=== PATIENT | female | born 1995 | race African-American/Black ===

== ENCOUNTER 2018-01-18 14:24 | Emergency (ER) | payer MEDICAID, OTHER ==
[2018-01-18 14:30] VITALS: BP 115/62; BMI 20.3
[2018-01-18 15:46] LABS: BILIRUBIN,URINE NEGATIVE (NEGATIVE); BLOOD/HEMOGLOBIN,URINE 1+ (NEGATIVE); GLUCOSE, URINE NEGATIVE (NEGATIVE); KETONES,URINE NEGATIVE (NEGATIVE); LEUKOCYTE ESTERASE ,URINE 2+ (NEGATIVE); NITRITES,URINE NEGATIVE (NEGATIVE); PROTEIN,URINE NEGATIVE (NEGATIVE); UROBILINOGEN,URINE NORMAL (NORMAL)
[2018-01-18 15:52] LABS: APPEARANCE,URINE CLOUDY (CLEAR); COLOR,URINE YELLOW (YELLOW)
[2018-01-18 15:54] LABS: BACTERIA,URINE 1+ /HPF (NEGATIVE); RBC,URINE 0-2 /HPF (NONE SEEN); SQUAMOUS EPITHELIAL CELL,UR FEW /HPF (NEGATIVE)
--- NOTE | 2018-01-18 16:23 | DR.POSSPRE ---
HPI - Time Seen Time seen: 15:00 - Primary Care Physician Primary Care Physician: NFD - Complaints Chief Complaint Doctors Comments: History as stated. patient is a SBF Chief Complaint:: PT STATED SHE THINKS SHE IS TWO MONTHS AND HAVING LOWER ABD PAIN AND SHE HAS BEEN SPOTTING ON AND OFF FOR 2 WEEKS. SGE STATED HER LAST MENSTRUAL WAS IN [facility] - Source History Provided: Patient - Mode of Arrival Mode of Arrival: Ambulatory - Timing Onset of Chief Complaint: 12/29/17 PMH - PMH Past Medical History: No Past Surgical History: No - Family History History of Family Medical Conditions: Yes Family Medical History: Diabetes Mellitus, Coronary Artery Disease, Hypertension - Social History Does patient currently use any type of tobacco product: No Have you used tobacco products in the last 12 months: No Type of Tobacco Use: None Does any household member use tobacco: No Alcohol Use: None Do you use any recreational Drugs:: No Lives With: Alone Lives Where: Home - infectious screening In the last 2 months have you had wt loss of >10#?: NO Have you had fever, night sweats or hemotysis?: No Have you traveled outside the country in the last 6 months?: No Isolation: Standard ROS - Review of Systems Eyes: No Symptoms Reported ENTM: No Symptoms Reported Respiratoy: No Symptoms Reported Cardiovascular: No Symptoms Reported Gastrointestinal/Abdominal: No Symptoms Reported Genitourinary: No Symptoms Reported Neurological: No Symptoms Reported Musculoskeletal: No Symptoms Reported Integumentary: No Symptoms Reported Hematologic/Lymphatic: No Symptoms Reported Endocrine: No Symptoms Reported Psychiatric: No Symptoms Reported All Other Systems: Reviewed and Negative PE - Vital Signs Vitals: Temperature 98.7 F Pulse Rate 100 Respiratory Rate 16 Blood Pressure [Left Arm] 158/92 Blood Pressure 115/62 O2 Sat by Pulse Oximetry 100 - General Limitations: No Limitations General Appearance: Alert, In No Apparent Distress - Head Head Exam: Normal Inspection, Atraumatic - Eyes Eye exam: Normal Appearance, PERRL, EOMI - ENT ENT Exam: Normal Exam - Neck Neck Exam: Normal Inspection, Full ROM - Chest Chest Inspection: Normal Inspection, Symmetric Chest Wall Rise - Respiratory Respiratory Exam: Normal Lung Sounds Bilat Respiratory Exam: Bilateral Clear to Auscultation - Cardiovascular Cardiovascular Exam: Regular Rate, Normal Rhythm - Abdominal Exam Abdominal Exam: Normal Inspection Abdominal Tenderness: negative: RUQ, RLQ, LUQ, LLQ, Epigastrium, Suprapubic, Diffuse, Mild, Moderate, Severe, Other - Rectal Rectal Exam: Deferred - Genitourinary Exam: OB: Deferred : OB External Exam: Deferred - Extremities Extremities Exam: Normal Inspection, Full ROM - Back Back Exam: Normal Inspection - Neurologic Neurological Exam: Alert, Oriented X3, CN II-XII Intact - Psychiatric Psychiatric Exam: Normal Affect, Normal Mood - Skin Skin Exam: Warm, Dry, Intact Course - Reevaluation 1st: Unchanged ROR - Labs Reviewed Laboratory: HCG, Quant [id number] mIU/mL (0-6) H 01/18/18 15:27 Specimen Type Clean catch urine 01/18/18 15:22 Urine Color Yellow (YELLOW) 01/18/18 15: Urine Appearance Cloudy (CLEAR) 01/18/18 15:22 Urine pH 7.0 (5.0 - 8.0) 01/18/18 15:22 Ur Specific [place] 1.010 (1.000-1.030) 01/18/18 15:22 Urine Protein Negative (NEGATIVE) 01/18/18 15:22 Urine Glucose (UA) Negative (NEGATIVE) 01/18/18 15:22 Urine Ketones Negative (NEGATIVE) 01/18/18 15:22 Urine Occult Blood 1+ (NEGATIVE) 01/18/18 15:22 Urine Nitrite Negative (NEGATIVE) 01/18/18 15:22 Urine Bilirubin Negative (NEGATIVE) 01/18/18 15:22 Urine Urobilinogen Normal (NORMAL) 01/18/18 15:22 Ur Leukocyte Esterase 2+ (NEGATIVE) 01/18/18 15:22 Urine RBC 0-2 /HPF (NONE SEEN) 01/18/18 15:22 Urine WBC 10-20 /HPF (NONE SEEN) 01/18/18 15:22 Ur Squamous Epith Cells Few /HPF (NEGATIVE) 01/18/18 15:22 Urine Bacteria 1+ /HPF (NEGATIVE) 01/18/18 15:22 Ur Culture Indicated? Yes/culture set up 01/18/18 15:22 - XRAY XRAY Interpreted by: Radiologist (OB ultrasound: S single living intrauterine gestation is identified with heart tones of 132 beast per minute. A cephalic presentation is observed. The placenta is posterior/fundal. Amniotic fluid volume appears grossly normal. Detail;ed anatomic screening is not performed; Special Deputy Sheriff reorts visualization of the four-chamber heart, three- vessel cord, stomach, bladder and spine. Average age by ultrasound: 17 weeks 0 days, RENEE by ultrasound 06/28/2018 Estimated weight: 174 g (0.38lb ) Impression: Single living intrauterine gestation as detailed above measuring 17 weeks 0 days with heart rate 132 bpm. No sonographic abnormalities identified.) - Diagnosis Discharge Problem: Qualifiers: Weeks of gestation: 17 weeks Qualified Code(s): Z3A.17 - 17 weeks gestation of - Discharge Plan Condition: Stable - Follow ups/Referrals Follow ups/Referrals: NFD,None [Primary Care Provider] - 3 days - Instructions
--- NOTE | 2018-01-18 18:10 | US ---
HISTORY: Abdominal pain, vaginal spotting Study: OB ultrasound greater than 14 weeks Comparison: None Technique: Multiple grayscale and color flow Doppler images of the pelvis were obtained with focused evaluation of the fetus. Findings: A single living intrauterine gestation is identified with heart tones of 132 beats per minute. A cephalic presentation is observed. The placenta is posterior/fundal. Amniotic fluid volume appears grossly normal. Detailed anatomic screening is not performed. Job Captain reports visualization of the four-aftab mber heart, three-vessel cord, stomach, bladder, and spine. Value (cm) Estimated Gestational Age BPD 3.61 17 weeks 1 day HC 13.59 17 weeks 0 days AC 11.04 16 weeks 6 days FL 2.29 16 weeks 6 days Average age by ultrasound: 17 weeks 0 days RENEE by ultrasound: 06/28/2018 Estimated weight: 174 g (0.38 lb) IMPRESSION: Single living intrauterine gestation as detailed above measuring 17 weeks 0 days with heart rat e 132 bpm. No sonographic abnormalities identified. Reported By:
== END 2018-01-18 18:28 | disposition home or self-care (01) ==
LOC: ER 14:37
DX: O26.859 Spotting complicating pregnancy, unspecified trimester (principal); Z3A.17 17 weeks gestation of pregnancy
CPT/HCPCS: 36415; 76815; 81001; 84702; 87086; 87088; 87186; 99284